=== PATIENT | female | born 1995 | race Two or more races ===

== ENCOUNTER 2019-04-07 01:30 | Emergency (ER) | payer MEDICAID ==
[~2019-04-07] VITALS: Ht 162.6 cm; Wt 63.5 kg
[2019-04-07 01:40] VITALS: BP 105/63
== END 2019-04-07 02:51 | disposition left against medical advice (07) ==
LOC: ER 01:30
DX: R11.0 Nausea (principal); R51 Headache; Z53.21 Procedure and treatment not carried out due to patient leaving prior to being seen by health care provider